=== PATIENT | male | born 1960 | race Caucasian/White ===

== ENCOUNTER 2024-03-20 10:19 | Emergency (ER) | payer OTHER, SELFPAY ==
--- NOTE | ~2024-03-20 | CT_ITS ---
EXAMINATION: CT brain wo con DATE: 03/20/2024 12:05 INDICATION: TIA TECHNIQUE: Computed tomography (CT) of the head was performed without intravenous contrast. The dose- length product was 605.33 mGy-cm. Automated exposure control and iterative reconstruction technique were employed. COMPARISON: None FINDINGS: There is a chronic right occipital lobe infarction with encephalomalacia. Mild generalized atrophy. There are scattered mild periventricular and subcortical white matter changes, most likely r elated to small vessel ischemic disease (microangiopathy). No ventriculomegaly or midline shift. Ther e is mild intracranial atherosclerosis. IMPRESSION: 1. No acute intracranial abnormality. 2: Chronic right occipital lobe infarction. Reviewed, dictated and finalized at location B.
--- NOTE | ~2024-03-20 | XR_ITS ---
EXAMINATION: XR chest 2V 03/20/2024 10:47 INDICATION: Atrial fibrillation PROCEDURE: 2 view chest COMPARISON: No prior studies for comparison. FINDINGS: The lungs are clear. The cardiomediastinal silhouette is within normal limits. There are no pleural effusions. There is no pneumothorax suspected. IMPRESSION: 1: NO ACUTE CARDIOPULMONARY DISEASE. Reviewed, dictated and finalized at location B.
--- NOTE | 2024-03-20 10:23 | ECG_ITS ---
SEE SCANNED COPY FOR CONFIRMED REPORT MTDD
[2024-03-20 10:29] VITALS: BP 154/92; PULSE 78; RESP 16; TEMP 36.8; O2SAT 100
[2024-03-20 10:33] VITALS: PULSE 68
[2024-03-20 10:41] LABS: Basophils Absolute Auto 0.1 K/mm3 (0.0-0.1); Basophils Percent Auto 0.5 % (0.2-1.2); Eosinophils Absolute Auto 0.2 K/mm3 (0-0.3); Eosinophils Percent Auto 1.8 % (0-4.4); Hemoglobin 16.6 g/dL (14.0-18.0); Immature Granulocyte Absolute 0.03 K/mm3 (0.00-0.031); Immature Granulocyte Percent A 0.3 % (0-0.5); Lymphocytes Absolute Auto 2.16 K/mm3 (0.9-3.2); Lymphocytes Percent Auto 21.6 % (18.3-44.2); Mean Corpuscular HGB Conc 33.2 g/dl (32-36); Mean Corpuscular Hemoglobin 32.2 pg (26-34); Mean Corpuscular Volume 97.1 fl (80-100); Mean Platelet Volume 11.4 fl (7.4-10.4); Monocytes Absolute Auto 0.8 K/mm3 (0.1-0.6); Monocytes Percent Auto 8.2 % (2.6-8.5); Neutrophils Absolute Auto 6.8 K/mm3 (1.3-6.7); Neutrophils Percent Auto 67.6 % (45.5-73.1); Platelet Count Result 252 k/mm3 (150-375); Red Blood Count 5.15 M/mm3 (4.6-6.20)
[2024-03-20 10:53] LABS: Alanine Aminotransferase 16 U/L (6-50); Albumin Level 4.4 g/dL (3.5-5.1); Alkaline Phosphatase 89 U/L (38-126); Anion Gap 6 mmol/L (4-12); Aspartate Amino Transferase 21 U/L (17-59); Bilirubin,Total 1.1 mg/dL (0.2-1.3); Blood Urea Nitrogen 17 mg/dL (9-20); Calcium 9.8 mg/dL (8.4-10.2); Carbon Dioxide 28 mmol/L (22-30); Chloride 108 mmol/L (98-107); Estimated CRCL calculation 52 ml/min; Estimated Glomerular Filt Rate 51; Glucose 80 mg/dL (65-110); Lipase 52 U/L (23-300); Potassium 4.2 mmol/L (3.4-5.0); Sodium 142 mmol/L (137-145)
[2024-03-20 10:54] LABS: INR 0.9; Prothrombin Time 12.9 Seconds (11.1-14.7)
[2024-03-20 10:55] LABS: Partial Thromboplastin Time 31.4 Seconds (22.3-36.8)
[2024-03-20 11:03] LABS: Troponin I < 0.012 ng/mL (0.000-0.034)
--- NOTE | 2024-03-20 11:20 | PC.NURSE ---
assumed care of pt from AUSTIN Walker. pt is resting on stretcher, no distress at this time. pt updated on plan of care: waiting on lab work at this time.
[2024-03-20 11:21] VITALS: BP 132/80; PULSE 86; RESP 18; TEMP 36.6; O2SAT 95
--- NOTE | 2024-03-20 11:39 | ED.ARRPALP ---
HPI - Arrhythmia/Palpitations General Chief Complaint: Arrhythmia/Palpitations Stated Complaint: new onset a-fib Time Seen by Provider: 03/20/24 10:29 History of Present Illness HPI narrative: Patient is a 63-year-old male who presents ER with reports of being in atrial fibrillation. Diagnosed yesterday while going to a sleep study. He went to an ER in [facility] but was not seen due to chaos in the ER and not wanting to stay. He has no chest pain or shortness of breath. He is currently also being evaluated for multiple episodes where his left arm went numb. He has no numbness or weakness at this time. No formal diagnosis of CVA or TIA in the past. He is a smoker. No known heart disease or heart failure. Denies history of hypertension. Related Data Allergies Allergy/AdvReac Type Severity Reaction Status Date / Time HYDROCODONE BIT Allergy Loss of Uncoded 03/20/24 10:21 Consciousness Review of Systems Review of Systems: All systems reviewed & are unremarkable except as noted in HPI and below Constitutional: Constitutional: Reports no additional constitutional complaints ENT: Reports system reviewed and no additional complaints, except as documented Cardiovascular: Cardiovascular: Reports no additional cardiovascular complaints Respiratory: Respiratory: Reports no additional respiratory complaints Gastrointestinal: Gastrointestinal: Reports no additional gastrointestinal complaints Genitourinary: Genitourinary: Reports no additional male genitourinary complaints [facility] Past Medical History Medical History (Updated 03/20/24 @ 13:31 by Catarino Moreno MD) Atrial fibrillation CVA (cerebral vascular accident) Family History Family History (Updated 06/12/17 @ 08:23 by DOCTOR UNKNOWN) Father Family history of malignant neoplasm Grandparent Family history of malignant neoplasm Family history unknown Social History Social History Smoking status: Heavy tobacco smoker Alcohol intake: current Exam Narrative: GENERAL: Well-appearing, well-nourished, and in no acute distress. HEAD: Normocephalic, atraumatic. ENT: Mucous membranes moist. NECK: Supple. CHEST: Clear to auscultation. No respiratory distress. HEART: irregularly irregular rate and rhythm. Normal peripheral pulses. ABDOMEN: Soft, nontender, nondistended. EXTREMITIES: Normal range of motion. No edema. SKIN: Warm, dry, no rash. NEURO: Alert and oriented x3. PSYCH: Normal mood and affect. Course Course Emergency Course: Heart care group consulted. No rate control required. We will perform a CT of the brain and if there is evidence of old infarct patient will be started on Xarelto. The CT does in fact show infarct. I have contacted patient's PCP who will follow him up. Patient be started on Xarelto daily. I have educated on the pertinent findings of his imaging studies and his lab work. Vital Signs Vital signs: Vital Signs Temperature 98.2 F 03/20/24 10:29 Pulse Rate 78 03/20/24 10:29 Respiratory Rate 16 03/20/24 10:29 Blood Pressure 154/92 H 03/20/24 10:29 Pulse Oximetry 100 03/20/24 10:29 Temperature 97.8 F 03/20/24 11:21 Pulse Rate 86 03/20/24 11:21 Respiratory Rate 18 03/20/24 11:21 Blood Pressure 132/80 03/20/24 11:21 Pulse Oximetry 95 03/20/24 11:21 MDM - Arrhythmia/Palpitations Lab Data 03/20/24 10:34 03/20/24 10:34 Labs: Lab Results 03/20/24 Range/Units 10:34 WBC 10.0 (4.5-10.0) K/mm3 RBC 5.15 (4.6-6.20) M/mm3 Hgb 16.6 (14.0-18.0) g/dL Hct 50.0 (42.0-52.0) % MCV 97.1 (80-100) fl MCH 32.2 (26-34) pg MCHC 33.2 (32-36) g/dl RDW 13.0 (11.5-14.5) % Plt Count 252 (150-375) k/mm3 MPV 11.4 H (7.4-10.4) fl Immature Gran % (Auto) 0.3 (0-0.5) % Neut % (Auto) 67.6 (45.5-73.1) % Lymph % (Auto) 21.6 (18.3-44.2) % [place] % (Auto) 8.2 (2.6-8.5) % Eos % (Auto) 1.
[2024-03-20 13:44] VITALS: BP 145/95; PULSE 86; RESP 16; TEMP 36.5; O2SAT 98
== END 2024-03-20 13:47 | disposition home or self-care (01) ==
PROVIDERS: Emergency Provider Emergency Medicine; PCP Family Medicine
DX: I48.91 Unspecified atrial fibrillation (principal); F17.200 Nicotine dependence, unspecified, uncomplicated; Z86.73 Personal history of transient ischemic attack (TIA), and cerebral infarction without residual deficits
CPT/HCPCS: 36415; 70450; 71046; 80053; 83690; 84443; 84484; 85025; 85610; 85730; 93005; 99284

== ENCOUNTER 2024-05-26 08:19 | Outpatient (CLI) | payer OTHER, SELFPAY ==
--- NOTE | 2024-05-26 08:42 | ECHO_ITS ---
Patient Info Name: Nazario Calvin Age: 63 years : 1960 Gender: Male Ht: 71 in Wt: 165 lbs BSA: 1.94 m2 HR: 68 bpm BP: 137 / 98 mmHg Heart Rhythm: Atrial Fibrillation Technical Quality: Good Exam Date: 05/26/2024 8:53 AM Exam Location: Echo Lab Patient Status: Outpatient Admit Date: 05/26/2024 Staff Ordering Physician: Naye Watson NP Statistical Consultant: Julia Chris RDCS Attending Provider: Naye Watson NP Exam Type: CA echo doppler color flow Study Info Indications I48.91 - UNSPECIFIED ATRIAL FIBRILLATION Complete two-dimensional, color flow and Doppler transthoracic echocardiogram is performed. Summary 1. Complete two-dimensional, color flow and Doppler transthoracic echocardiogram is performed. 2. Left ventricular chamber dimension is normal. 3. Left ventricular systolic function is normal, estimated at 60-65%. 4. The left ventricular diastolic function is normal. 5. E/e' 6 is not elevated. 6. Atrial fibrillation. 7. Left atrial chamber dimension is mildly enlarged. 8. Right atrial chamber dimension is mildly enlarged. 9. There is mild aortic valve sclerosis. 10. There is mild to moderate aortic valve regurgitation. 11. There is trace mitral valve regurgitation. 12. There is trace tricuspid valve regurgitation. 13. No pulmonary hypertension, estimated pulmonary arterial systolic pressure is 27 mmHg. 14. There is trace pulmonic regurgitation. Left Ventricle Atrial fibrillation. E/e' 6 is not elevated. Left ventricular chamber dimension is normal. Left ventricular systolic function is normal, estimated at 60-65%. The left ventricular diastolic function is normal. Right Ventricle Right ventricular systolic function is normal and with normal TAPSE 2.0 cm. Right ventricular chamber dimension is normal. Left Atria Left atrial chamber dimension is mildly enlarged. Right Atria Right atrial chamber dimension is mildly enlarged. Aortic Valve The aortic valve is trileaflet. There is mild aortic valve sclerosis. There is no aortic valve stenosis. There is mild to moderate aortic valve regurgitation. Pulmonic Valve There is trace pulmonic regurgitation. Mitral Valve There is no mitral valve stenosis. There is trace mitral valve regurgitation. Tricuspid Valve There is trace tricuspid valve regurgitation. No pulmonary hypertension, estimated pulmonary arterial systolic pressure is 27 mmHg. Pericardium/Pleural There is no pericardial effusion. Inferior Vena Cava Normal inferior vena cava with >50% collapse upon inspiration consistent with normal right atrial pressure, 5 mmHg. Aorta The aortic root size at the sinus of Valsalva is normal. Left Ventricular Outflow Tract Name Value Normal LVOT 2D LVOT Diameter 2.0 cm LVOT Doppler LVOT Peak Gradient 3 mmHg LVOT Mean Gradient 1 mmHg LVOT VTI 16 cm LVOT VTI/AV VTI Ratio 0.8 LVOT Stroke Volume 49 ml LVOT CO 3.6 l/min LVOT CI 1.9 l/min/m2 Pulmonic Valve
== END 2024-05-26 08:20 | disposition home or self-care (01) ==
LOC: ANHCARD 08:21
PROVIDERS: PCP Nurse Practitioner Family; Visit Provider Nurse Practitioner Family
DX: I48.91 Unspecified atrial fibrillation (principal); I35.8 Other nonrheumatic aortic valve disorders; I35.1 Nonrheumatic aortic (valve) insufficiency
CPT/HCPCS: 93306

== ENCOUNTER 2025-06-02 00:13 | Day surgery (SDC) | payer OTHER, SELFPAY ==
[2025-05-18 15:59] VITALS: BMI 23.1
--- NOTE | 2025-05-18 16:08 | PC.NURSE ---
Spoke with pt regarding holding Xarelto, last dose 05/30/25. Pt stated understanding.
--- OUTSIDE RECORDS SUMMARY | 2025-06-02 00:15 | XMS_ITS | Encounter Summary ---
Author Organization [facility] Address [address] [place] [address] Care Team Providers Care Engine Room Operator Name Role Phone Unavailable Primary Care Provider Unavailabl e Encounter Details Date Type Department Care Team (Late st Contact Info) Description 04/04/2023 Lab Requisition [facility] - DermPath Lab [address] [place] [address] Antonia Silva DO [address] [facility] [address] [place] [address] Social History Tobacco Use Types Packs/Day Years Used Date Smoking Tobacco: Never Assessed Sex and Gender Information Value Date Recorded Sex Assigned at Not on file Legal Sex Male 2:41 PM CDT Gender Identity Not on file Sexual Orientation Not on file documented as of this encounter Plan of Treatment Not on file documented as of this encounter Procedures Procedure Name Priority Date/Time Associated Diagnosis Comments DERMATOPATHOLOGY Routine 04/04/2023 11:0 2 AM CDT documented in this encounter Results * DERMATOPATHOLOGY (04/04/2023 11:02 AM CDT) Case Report Dermatopathology Report Case: [id number] Authorizing Provider: Antonia Silva DO Collected: 04/04/2023 11:02 AM Ordering Location: [facility] Lab Received: 04/05/2023 09:04 AM Pathologist: Charu Bowen MD Specimen: Skin, left upper back 3 4:48 PM CDT DERMATOPATHOLOGY LABORATORY Final Diagnosis Specimen A. 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 The specimen consists of a shave biopsy measuring [id number]. Jar 0. 3 4:48 PM CDT DERMATOPATHOLOGY LABORATORY Microscopic Description Specimen A. SKIN, left upper back: The epidermis is mildly acanthotic. There is a lichenoid infiltrate with vacuolar changes of basilar keratinocytes and scattered necrotic keratinocytes. Sections show abundant melanin within melanophages around the superficial vascular plexus. 3 4:48 PM T DERMATOPATHOLOGY LABORATORY Disclaimer An external and internal positive and negative controls are appropriate for the histochemical, immunohistochemical and immunofluorescence stain(s) in this case (if any), except where stated explicitly. The performance characteristics of the stain(s) cited in this report were developed and its performance characteristic determined by the Dermatopathology Laboratory at [facility], directed by Dr. Richard Bowen. These tests need not be, and therefore are not, approved by the [place] Food and Drug Administration. The tests are used for clinical purposes. Billing Codes Specimen Charges Stain Charges 83737 1 3 4:48 PM CDT DERMATOPATHOLOGY LABORATORY Embedded Images 3 4:48 PM CDT DERMATOPATHOLOGY LABORATORY Pathology/Cytolo gy TISSUE SPECIMEN FROM SKIN / Unknown 04/04/2023 11:02 AM CDT 04/05/2023 9:04 AM CDT us Antonia Silva DO LAB - PATHOLOGY/CYTOLOGY ORDERABLES Final Result DERMATOPATHOLOGY LABORATORY [facility] - Department of Dermatology [address] [place] [address], [facility] [phone] documented in this encounter Visit Diagnoses Not on filedocumented in this encounter
--- OUTSIDE RECORDS SUMMARY | 2025-06-02 00:15 | XMS_ITS | Clinical Summary ---
Author Organization [facility] Address [address] [place] [address] Care Team Providers Care Flat Hammerer Name Role Phone Unavailable Primary Care Provider Unavailabl e Source Comments [facility],non-owned Affiliates and Associated Physician Practices is amultiple site organization consisting of ambulatory clinics and hospital sitesin [place], [place], [place] and [place]. This disclosure is being madepursuant to the Care Everywhere program and may not contain all information available regarding this patient. Last updated 18.[facility] [employer] Social History Tobacco Use Types Packs/Day Years Used Date Smoking Tobacco: Never Assessed Sex and Gender Information Value Date Recorded Sex Assigned at Not on file Legal Sex Male 2:41 PM CDT Gender Identity Not on file Sexual Orientation Not on file Plan of Treatment Health Maintenance Due Date Last Done Comments COLOGUARD (AGES 45-75) - COL ON CA SCREENING 1960 COLON MONITORING 1960 COLONOSCOPY - COLON CA SCREENING 1960 CT COLONOGRAPHY - COLON CA SCREENING 1960 Colorectal Cancer Screening 1960 FIT - COLON CA SCREENING 1960 FLEX SIG - COLON CA SCREENING 1960 LIPID TESTING 1960 HIV SCREENING 1975 HEPATITIS C SCREENING 10/30/1978 DTAP/TDAP/TD VACCINES (1 - Tdap) 1979 PNEUMOCOCCAL VACCINE 50+ (1 of 1 - PCV) 2010 ZOSTER VACCINE (1 of 2) 2010 COVID-19 VACCINE ( - 2023-2 5 season) 2024 DEPRESSION SCREENING 11/19/2024 INFLUENZA VACCINE (#1) 2025 Respiratory Syncytial Virus (RSV) Vaccine Pt: or over 60 yrs (1 - 1-dose 75+ series) 2035 HEPATITIS B VACCINE Aged Out No longe r eligible based on patient's age to complete this topic HIB VACCINE Aged Out No longer eligi ble based on patient's age to complete this topic HPV VACCINE Aged Out No longer eligi ble based on patient's age to complete this topic MENINGOCOCCAL (Group B) VACC INE SHARED DECISION-MAKING Aged Out No longer eligibl e based on patient's age to complete this topic MENINGOCOCCAL GROUPS A/C/Y/W VACCINE Aged Out No longer eligible b ased on patient's age to complete this topic [facility]
--- OUTSIDE RECORDS SUMMARY | 2025-06-02 00:16 | XMS_ITS | Data Portability ---
Author Organization [facility], Main Office Address [address] [place] [address] Assessment No assessment recorded. Plan of Treatment Reminders Order Date Submit Date Provider Last Modified By Organization Details Last Modified Time Details Appointments None recorded. Lab lipid panel, serum 2023 024 4 [facility] (Lab), [address] [place], [address], 4 09:33:00 BMP, serum or plasma 2022 023 RALEIGH Not available 3 21:00:33 BMP, serum or plasma 2022 023 [email or web address] Not available 3 17:20:01 Referral neurologist referral - Please call patient to schedule an appointment 2023 024 [email or web address] Asif Ramsey MD, [address] [facility] , [address], [address], 4 09:08:15 Procedures None recorded. Surgeries None recorded. Imaging None recorded. Medication Orders aspirin 81 mg tablet,davis yed release 2023 024 [email or web address] [facility] #[id number], [address] [place] [address], [id number], 4 09:36:16 famotidine 40 mg tablet 2022 023 [email or web address] [facility] #[id number], [address] [place] [address], [id number], 3 13:24:05 Otezla Starter 10 mg (4)-20 mg (4)-30 mg(19) tablets in a dose pack 2022 023 RALEIGH Barber, [address] [place], [address], 3 12:05:24 prednisone 20 mg tablet 2022 023 [email or web address], [address] [place] [address], [id number], 3 15:26:54 clobetasol 0.05 % topical cream 2022 023 [email or web address], [address] [place] [address], [id number], 3 15:26:55 Patient TargetsNo targets recorded. Patient InstructionsNo instructions recorded. Reason for Referral Neurologist Referral for His tory of cerebrovascular accident without residual deficits Please call patient to schedule an appointment Referring Physician: Ashish Robert, Family Medicine, Encounter Date: 01/15/2024 Results Created Date Observation Date Name Description Value Unit Range Abnormal Flag Note LastModifiedBy Organization Detail LastModifiedTime 03/14/2003/14/2023 BASIC METAB OLIC PANEL sodium 141 mmol/ L 137-14 5 Not Available [facility] (Lab) [address] [place], [address], 03/14/2023 21:20:24 03/14/20 23 03/14/2023 BASIC METAB OLIC PANEL potassium 4.5 mmol/ L 3.5-5. 1 Not Available [facility] (Lab) [address] [place], [address], 03/14/2023 21:20:24 03/14/20 23 03/14/2023 BASIC METAB OLIC PANEL chloride 105 mmol/ L 98-107 Not Available [facility] (Lab) [address] [place], [address], 03/14/2023 21:20:24 03/14/20 23 03/14/2023 BASIC METAB OLIC PANEL carbon dioxide 27 mmol/ L 22-30 Not Available [facility] (Lab) [address] [place], [address], 03/14/2023 21:20:24 03/14/20 23 03/14/2023 BASIC METAB OLIC PANEL anion gap 13.5 mmol/ L 14-22 low Not Available [facility] (Lab) [address] [place], [address], 03/14/2023 21:20:24 03/14/20 23 03/14/2023 BASIC METAB OLIC PANEL glucose 143 mg/dL 70-99 high Not Available [facility] (Lab) [address] [place], [address], 03/14/2023 21:20:24 03/14/20 23 03/14/2023 BASIC METAB OLIC PANEL BUN 11 mg/dL 8-19 Not Available [facility] (Lab) [address] [place], [address], 03/14/2023 21:20:24 03/14/20 23 03/14/2023 BASIC METAB OLIC PANEL creatinine 1.20 mg/dL 0.66-1 .25 Not Available [facility] (Lab) [address] [place], [address], 03/14/2023 21:20:24 03/14/20 23 03/14/2023 BASIC METAB OLIC PANEL GFR >60 Refer ence Range : [place] GFR Healt hy Adult : >60 mL/mi n/1.7 3 m2 Chron ic Kidne y Disea se: 15-60 mL/mi n/1.7 3 m2 Kidne y Failu re: <15/m L/min /1.73 m2 www.n iddk. nih.g ov The MDRD study equat ion has not been valid ated in child elvie <18 years of age; pregn ant women ; the elder ly >85 years of age; or in some racia l or ethni c subgr oups, such as Hispa nics. Outsi de the valid ated guy eters , estim ated GFR is less accur ate, requi ring clini krystyan judgm ent on a case- by-ca se basis . Clini krystyna inter preta tion for other races and ages must be made by the clini marleny. The MDRD study equat ion has not been valid ated for the evalu ation of serum creat inine relat ed to nutri josie l statu s or medic ation usage . For perso ns <18 years of age, a pedia tric GFR calcu lator is avail able on the [facility] websi te: https ://ijeoma stevens.shannon latif.o rg/pr ofess ional s/kdo qi/gf r_cal culat or Not Available [facility] (Lab) [address] [place], [address], 03/14/2023 21:20:24 03/14/20 23 03/14/2023 BASIC METAB OLIC PANEL calcium 9.7 mg/dL 8.4-10 .2 Not Available [facility] (Lab) [address] [place], [address], 03/14/2023 21:20:24 06/20/20 23 06/20/2023 BASIC METAB OLIC PANEL sodium 138 mmol/ L 137-14 5 Not Available [facility] (Lab) [address] [place], [address], 06/20/2023 21:00:33 06/20/20 23 06/20/2023 BASIC METAB OLIC PANEL potassium 4.7 mmol/ L 3.5-5. 1 Not Available [facility] (Lab) [address] [place], [address], 06/20/2023 21:00:33 06/20/20 23 06/20/2023 BASIC METAB OLIC PANEL chloride 105 mmol/ L 98-107 Not Available [facility] (Lab) [address] [place], [address], 06/20/2023 21:00:33 06/20/20 23 06/20/2023 BASIC METAB OLIC PANEL carbon dioxide 28 mmol/ L 22-30 Not Available [facility] (Lab) [address] [place], [address], 06/20/2023 21:00:33 06/20/20 23 06/20/2023 BASIC METAB OLIC PANEL anion gap 9.7 mmol/ L 14-22 low Not Available [facility] (Lab) [address] [place], [address], 06/20/2023 21:00:33 06/20/20 23 06/20/2023 BASIC METAB OLIC PANEL glucose 101 mg/dL 70-99 high Not Available [facility] (Lab) [address] [place], [address], 06/20/2023 21:00:33 06/20/20 23 06/20/2023 BASIC METAB OLIC PANEL BUN 15 mg/dL 8-19 Not Available [facility] (Lab) [address] [place], [address], 06/20/2023 21:00:33 06/20/20 23 06/20/2023 BASIC METAB OLIC PANEL creatinine 1.11 mg/dL 0.66-1 .25 Not Available [facility] (Lab) [address] [place], [address], 06/20/2023 21:00:33 06/20/2006/20/2023 BASIC METAB OLIC PANEL GFR >60 Refer ence Range : [place] GFR Healt hy Adult : >60 mL/mi n/1.7 3 m2 Chron ic Kidne y Disea se: 15-60 mL/mi n/1.7 3 m2 Kidne y Failu re: <15/m L/min /1.73 m2 www.n iddk. nih.g ov The MDRD study equat ion has not been valid ated in child elvie <18 years of age; pregn ant women ; the elder ly >85 years of age; or in some racia l or ethni c subgr oups, such as Hispa nics. Outsi de the valid ated guy eters , estim ated GFR is less accur ate, requi ring clini krystyna judgm ent on a case- by-ca se basis . Clini krystyna inter preta tion for other races and ages must be made by the clini marleny. The MDRD study equat ion has not been valid ated for the evalu ation of serum creat inine relat ed to nutri josie l statu s or medic ation usage . For perso ns <18 years of age, a pedia tric GFR calcu lator is avail able on the [facility] websi te: https ://ijeoma w.shannon latif.o rg/pr ofess ional s/kdo qi/gf r_cal culat or Not Available [facility] (Lab) [address] [place], [address], 06/20/2023 21:00:33 06/20/20 23 06/20/2023 BASIC METAB OLIC PANEL calcium 9.4 mg/dL 8.4-10 .2 Not Available [facility] (Lab) [address] [place], [address], 06/20/2023 21:00:33 03/20/20 24 03/20/2024 XR, chest No observ ation record ed. [email or web address] [facility] [address], [place], [address], 04/05/2024 20:21:13 03/20/20 24 03/20/2024 CT, brain , w/o contr ast No observ ation record ed. [email or web address] [facility] [address] [facility] [address], [place], [address], 04/23/2024 09:43:15 Result Notes None recorded. Problems Name Problem SNOMED Code Status Onset Date Resolution Date Notes Provider Name and Address Organization Details Recorded Time Bronchitis 42900516 Active Not Available [facility] 3 14:18:01 Cellulitis of lower limb 339496229 Active Not Available [facility] 3 14:18:01 Psoriasis 1206453 Active 2018 Not Available [facility] 3 14:18:01 Malignant melanoma 402095879 Active 2022 Herminia Ruiz MD [address], [place], [address] , [employer] 3 15:15:50 Chest pain 92504033 Active 2023 MORENO Spangler [address], [place], [address] , [employer] 4 09:04:19 Problem Notes None recorded. Medical Equipment None Reported. Allergies Allergen ID Allergen Name Allergen Category Reaction Reaction Severity Criticality Documentation Date Start Date Code Code System Note Provider Name and Address Organization Details Recorded Time 55832 hydrocodo ne Not available Not available Not available Not available 01/17/2023 5489 RxNorm Not Available [facility] 3 14:21:08 Medications Name Sig Start Date Stop Date Status Note LastModified by Organization Details LastModified Time Prescript ion - New 06/20 completed Not Available Not Available Not Available amoxicill in 500 mg capsule 01/15 completed Not Available Not Available Not Available prednison e 10 mg tablet 01/15 completed Not Available Not Available Not Available doxycycli ne hyclate 100 mg capsule 01/15 completed Not Available Not Available Not Available azithromy chuck 250 mg tablet TAKE 2 TABLETS (500 MG) BY ORAL ROUTE ONCE DAILY FOR 1 DAY THEN 1 TABLET (250 MG) BY ORAL ROUTE ONCE DAILY FOR 4 DAYS 02/06 completed Not Available Not Available Not Available famotidin e 40 mg tablet TAKE 1 TABLET BY MOUTH DAILY active Not Available Not Available No t Available prednison e 20 mg tablet TAKE 2 TABLETS BY MOUTH EVERY DAY WITH FOOD FOR 5 DAYS active Not Available Not Available No t Available clobetaso l 0.05 % topical cream APPLY A THIN LAYER TO THE AFFECTED AREAS TOPICALL Y TWICE DAILY NEEDED active Not Available Not Available No t Available clindamyc in HCl 150 mg capsule Take 1 capsule every 8 hours by oral route. 10/25 completed Not Available Not Available Not Available triamcino lone acetonide 0.5 % topical ointment 02/06 completed Not Available Not Available Not Available acetamino phen 300 mg-codein e 30 mg tablet 11/04 completed Not Available Not Available Not Available ciproflox acin 250 mg tablet Take 1 tablet every 12 hours by oral route for 14 days. 02/06 completed Not Available Not Available Not Available sulfameth oxazole 800 mg-trimet hoprim 160 mg tablet TK 1 T PO BID FOR 14 DAYS 02/06 completed Not Available Not Available Not Available aspirin 81 mg tablet,de layed release Take 1 tablet every day by oral route for 90 days. 2023 active Not Available Not Available Not Avai lable tramadol 50 mg tablet 01/15 completed Not Available Not Available Not Available losartan 100 mg-hydroc hlorothia zide 25 mg tablet TK 1 T PO QD 02/06 completed concerne d about recall Not Available Not Available Not Available amoxicill in 875 mg tablet Take 1 tablet every 12 hours by oral route for 7 days. 02/06 completed Not Available Not Available Not Available triamcino lone acetonide 0.1 % topical ointment 02/06 completed Not Available Not Available Not Available polymyxin B sulfate 10,000 unit-trim ethoprim 1 mg/mL eye drops 01/15 completed Not Available Not Available Not Available lisinopri l 20 mg-hydroc hlorothia zide 25 mg tablet TK 1 T PO QD 02/06 completed Not Available Not Available Not Available ibuprofen 600 mg tablet 10/25 completed Not Available Not Available Not Available cefuroxim e axetil 500 mg tablet Take 1 tablet twice a day by oral route for 10 days. 01/15 completed Not Available Not Available Not Available methylpre dnisolone 4 mg tablets in a dose pack FPD 02/06 completed Not Available Not Available Not Available ondansetr on 4 mg disintegr ating tablet DIS ONE T PO Q 8 H PRF NAUSEA 02/06 completed Not Available Not Available Not Available fluticaso ne propionat e 50 mcg/actua tion nasal spray,[employer] pension [place] 1 spray every day by intranas al route for 30 days. 02/06 completed Not Available Not Available Not Available Otezla Starter 10 mg (4)-20 mg (4)-30 mg(19) tablets in a dose pack take as directed 2022 active Not Available Not Available Not Avai lable Otezla 30 mg tablet 1 po bid active Not Available Not Available N ot Available Otezla Starter 10 mg (4)-20 mg (4)-30 mg(47) tablets in a dose pack active Not Available Not Available Not Available Flucelvax Quad 60 mcg (15 mcg x 4)/0.5 mL IM suspensio n ADM 0.5ML IM UTD 02/06 completed Not Available Not Available Not Available Fluarix Quad (PF) 60 mcg (15 mcg x 4)/0.5 mL IM syringe ADM 0.5ML IM UTD 02/06 completed Not Available Not Available Not Available Vitals Date Recorded Body height Body mass index (BMI) Body weight Body temperature Heart rate Oxygen saturation Oxygen saturation in Arterial blood by Pulse oximetry Systolic And Diastolic Provider Name and Address Organization Details Last Updated DateTime 4 180.34 cm 22.3 kg/m2 29784.7 8 g 98.3 [degF] 94 /min 99 % 99 % 128/80 mm[Hg] Marquita Cary RN [facility] [employer] 4 08:56:06 Date Recorded Body height Body mass index (BMI) Body weight Body temperature Heart rate Oxygen saturation Oxygen saturation in Arterial blood by Pulse oximetry Systolic And Diastolic Provider Name and Address Organization Details Last Updated DateTime 3 180.34 cm 22.5 kg/m2 98995.3 7 g 97.3 [degF] 60 /min 98 % 98 % 126/80 mm[Hg] Charlotte Olivo MA [facility] [employer] 3 14:39:23 Date Recorded Body height Body mass index (BMI) Body weight Body temperature Heart rate Oxygen saturation Oxygen saturation in Arterial blood by Pulse oximetry Systolic And Diastolic Provider Name and Address Organization Details Last Updated DateTime 3 180.34 cm 22 kg/m2 63507.5 9 g 98.2 [degF] 74 /min 97 % 97 % 120/80 mm[Hg] Lisa Escalera MA [place] [employer] [facility] [employer] 3 15:40:16 Date Recorded Body height Body mass index (BMI) Body weight Body temperature Heart rate Oxygen saturation Oxygen saturation in Arterial blood by Pulse oximetry Systolic And Diastolic Provider Name and Address Organization Details Last Updated DateTime 3 180.34 cm 22.3 kg/m2 59682.7 8 g 97.1 [degF] 53 /min 94 % 94 % 140/86 mm[Hg] Asuncion Motta RN [facility] 3 08:55:36 Social History Question Answer Notes LastModified by [employer] Details LastModified Time Tobacco Smoking Status Current Every Day Smoker Charlotte Olivo MA [facility], [place] [employer] [facility] 02/06/2023 14:42:19 What Is Your Level Of Caffeine Consumption? Moderate [email or web address] Information not available 02/06/2023 What Type Of Diet Are You Following? REGULAR [email or web address] Information not available 02/06/2023 What Is Your Current Pack Years? 10-19packyears [email or web address] Information not available 02/06/2023 How Much Tobacco Do You Smoke? 1 PPD [email or web address] Information not available 02/06/2023 Do You Have Any Dietary Restrictions? No [email or web address] Information not available 02/06/2023 Sex: Unknown Functional Status Question Answer Note LastModified by [employer] Details LastModified Time Do you use any illicit or recreational drugs? No [email or web address] Information not available 02/06/2023 What is your level of alcohol consumption? 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 Heavy [email or web address] Information not available 02/06/2023 Mental Status None recorded. Family History Relationship Description Onset Age of this Age Resolved Age Notes LastModified by Organization Details LastModified Time Mother Diabetes mellitus Not available 01/18 14:41:04 Medical History No medical history recorded. Immunizations Vaccine Type Date Status Note Provider Nam e and Address Organization Details Recorded Time Influenza, split virus, quadrivalent, preservative 9 completed Not Available [facility] 01/17/2023 14:20:56 Past Encounters Encounter ID Performer Location Encounter Start Date Encounter Closed Date Diagnosis/Indication Diagnosis SNOMED-CT Code Diagnosis ICD10 Code Diagnosis Note [id number] Herminia Ruiz MD [facility] Primary [facility] [address] [place] [address] 02/06/2023 14:10:42 02/06/2023 15:35:25 Psoriasis 9426917 L40.9 has failed humira, topical creamstria l of otezla starter packpredni sone taper and topical steroid in meantimef/ u in 4 weeks Malignant melanoma 29889 4006 C43.9 ?melanoma, pt was not clear on diagnosis but does not have set f/u yethe was instructed to contact his dermatolog y to verify when he should f/uhe agreed to do sof/u in 4 weeks or sooner if needed [id number] Herminia Ruiz MD [facility] Primary Care [address] [place] [address] 03/14/2023 15:30:38 03/14/2023 17:09:39 Psoriasis 2045636 L40.9 Z79.899 has failed humira, topical creamsdoin g well on otezlachec k bmpf/u in 3 months or sooner if needed [id number] Herminia Ruiz MD [facility] Primary Care [address] [place] [address] 06/20/2023 08:49:03 06/20/2023 09:25:34 Psoriasis 1278673 L40.9 Z79.899 has failed humira, topical creamsdoin g well on otezla but having some med s/echeck bmpf/u in 3 months or sooner if needed, consider derm referral if still having s/e [id number] Herminia Ruiz MD [facility] Primary Care [address] [place] [address] 01/15/2024 08:47:54 01/15/2024 10:08:29 History of cerebrovascular accident without residual deficits 995769206 Z86.73 -Pt noted recent left sided chest pain x2 (while at work performing regular work duties swinging 8oz hammer, and while walking around his home performing no specific job)-left upper arm went numb during both occasions (resolved after approx 30 seconds)-s lurred speech noted on the second occurrence (resolved after 30 sec)-All symptoms have resolved and have not happened again for weeks-poss ible TIA-referr al to neuro given-star ting aspirin 81mg-obtai winter lipid panel Health Concerns Section Related Observation LastModified by Organization Detai ls LastModified Time None Recorded Concern Status LastModified by Organization Details LastModified Time None Recorded Advance Directives Directive None Recorded Payers Insurance Date Sequence Insurance Name Policy Number Policy Weaver Covered Member ID Weaver Member ID Guarantor Name 01/15/2024 1 [facility] [id number] Nazario Calvin [id number] Nazario Calvin Notes Date Note Type Note Provider Name and Address Organization Details Recorded Time 02/06/2023 text/html here to dulce melvin [facility]-he has been diagnosed with psoriasis but nothing has been effective. He has been treated with humira, steroids, topical creams. No chest pain, no sob. He notes that he had a skin lesion removed in the last year and believes he was told it was melanoma but has no set f/u with dermatology. Herminia Ruiz MD [address] [place] [address], [place], [address], [employer] 02/15/2023 07:51:41 03/14/2023 text/html here to f/u on psoriasis. He had significant improvement with oral prednisone and is now tolerating otezla well. Herminia Ruiz MD [address], [place], [address], [employer] 03/14/2023 20:52:13 06/20/2023 text/html here to f/u on psoriasis. He had significant improvement with oral prednisone and is now tolerating otezla well. update 06/20/23: He is having headache, upset stomach with otezla, but it is getting somewhat better. Overall significant improvement in his psoriasis, still some spots on his hands that he is using clobetasol on. Herminia Ruiz MD [address] [place] [address], [place], [address], [employer] [facility] [employer] [facility] 06/20/2023 10:15:26 01/15/2024 text/html Pt is here to discuss possible TIA symptoms JUSTINE Spangler-Frandy [address], [facility] [address], [place], [address], [employer] [facility] 01/15/2024 09:39:52
--- OUTSIDE RECORDS SUMMARY | 2025-06-02 00:16 | XMS_ITS | Referral Summary ---
Author Organization [facility] Address [address] [place] [address] Care Team Providers Care Production Support Developer Name Role Phone Ashish Robert NP Unavailable [phone] Naye Watson NP Primary Care Provider [phone] Allergies Active Allergy Reactions Criticality Noted Date Comments Hydrocodone Delusions Medium 06/23/2024 Medications Xarelto 20 mg tablet Take 1 tablet (20 mg total) by mouth daily 04/16/2024 Active famotidine (PEPCID) 20 mg tablet Take 1 tablet (20 mg total) by mouth 2 (two) times a day Active Active Problems Problem Noted Date Diagnosed Date Persistent atrial fibrillation 06/23/2024 Nonrheumatic aortic valve insufficiency 06/23/20 24 Snoring 03/19/2024 Assessment & Plan (03/19/2024 2:23 PM CDT): I have ordered a nocturnal polysomnogram split night protocol if necessary, no MSLT. History of tobacco use 03/19/2024 Assessment & Plan (03/19/2024 2:23 PM CDT): Due to the patient's smoking approximately 1-1-1/2 pack cigarettes for almost 50 years I have ordered a low-dose screening CT scan. Other fatigue 03/19/2024 Irregular heart rate 03/19/2024 Assessment & Plan (03/19/2024 3:20 PM CDT): I have ordered an EKG. Addendum to the note The patient was found to be in atrial fibrillation. The patient was requested to go to the emergency room at [facility]. The patient refused to go to the emergency room at [facility] and is going to go to the emergency room at [facility] in [place]. Social History Tobacco Use Types Packs/Day Years Used Date Smoking Tobacco: Every Day Cigarettes 1 40.2 Started: 03/19/1985 Tobacco Cessation:Ready to Q uit: Not Asked; Counseling Given: Not Answered Alcohol Use Standard Drinks/Week Comments Not Currently 0 (1 standard drink = 0.6 oz pur e alcohol) Personal Safety Answer Date Recorded Have you ever been in or are you currently in a harmful physical or emotional relationship or is someone making you feel afraid or unsafe? Denies 03/19/2024 Sex and Gender Information Value Date Recorded Sex Assigned at Not on file Legal Sex Male 10:21 PM [employer] Gender Identity Male 03/19/2024 3:59 PM CDT Sexual Orientation Not on file Last Filed Vital Signs Vital Sign Reading Time Taken Comments Blood Pressure 129/80 2024 8:10 AM [employer]BINATION PRESSER Pulse 81 2024 8:10 AM COMBINATION PRESSER Temperature 36.6 C (97.9 F) 03/19/2024 3:13 PM CDT Respiratory Rate 18 2024 8:10 AM COMBINATION PR[employer]ER Oxygen Saturation 100% 03/19/2024 7:20 PM CDT Inhaled Oxygen Concentration - - Weight 75.3 kg (166 lb) 2024 8:10 AM COMBINATION PRESSER Height 180.3 cm (5' 11) 2024 8:10 AM COMBINATION PRESSER Body Mass Index 23.15 2024 8:10 AM COMBINATION PRESSER Plan of Treatment Not on file [place] [id number] Care Teams Production Support Developer Relationship Specialty Start Date End Date Naye Watson NP [address] [address] PCP - General Family Medicine 06/23/24 Ashish Robert NP [address] [place] [address] Family Medicine 03/19/24
--- OUTSIDE RECORDS SUMMARY | 2025-06-02 00:16 | XMS_ITS | Clinical Summary ---
Author Organization [facility] Address [address] [place] [address] Care Team Providers Care Compressor Mechanic Name Role Phone Ashish Robert NP Unavailable [phone] Naye Watson NP Primary Care Provider [phone] Allergies Active Allergy Reactions Criticality Noted Date [...] to go to the emergency room at [facility]. The patient refused to go to the emergency room at [facility] and is going to go to the emergency room at [facility] in [place]. Social History Tobacco Use Types Packs/Day Years [...] on file Legal Sex Male 10:21 PM CURRENCY COUNTER Gender Identity Male 03/19/2024 3:59 PM CDT Sexual Orientation Not on file Obstetrics History Last Filed Vital Signs Vital Sign Reading Time Taken Comments Blood Pressure 129/80 2024 8:10 AM CURRENCY COUNTER Pulse 81 2024 8:10 AM CURRENCY COUNTER Temperature 36.6 C (97.9 F) 03/19/2024 3:13 PM CDT Respiratory Rate 18 2024 8:10 AM CURRENCY COUNTER Oxygen Saturation 100% 03/19/2024 7:20 PM CDT Inhaled Oxygen Concentration - - Weight 75.3 kg (166 lb) 2024 8:10 AM CURRENCY COUNTER Height 180.3 cm (5' 11) 2024 8:10 AM CURRENCY COUNTER Body Mass Index 23.15 2024 8:10 AM CURRENCY COUNTER Plan of Treatment Health Maintenance Due Date Last Done Comments Colon Cancer Screening-Colonoscopy 1960 Depression Screening 1960 Hepatitis C Screening 1960 Prostate Cancer Screening-PSA 1960 Hepatitis B Screening 1978 Regular Well Visit/Exam 18-64 1978 Pneumococcal vaccine <65 (1 of 2 - PCV) 1979 Lung Cancer Screening 2010 Zoster Vaccine (1 of 2) 2010 Covid-19 Vaccine (4 - 2023-2 5 season) 2024 12/13/2021, 03/02/2021, 02/09/2021 Influenza Vaccine (#1) 2025 , 08/17/2020, 08/24/2019, Additional history exists DTaP/Tdap/Td Vaccine (2 - Td or Tdap) 03/17/2030 03/17/2020 Insurance Care Teams Compressor Mechanic Relationship Specialty Start Date End Date Naye Watson NP [address] [address] PCP - General Family Medicine 06/23/24 Ashish Robert NP [address] [place] [address] [place] [address] Family Medicine 03/19/24
[2025-06-02 11:56] VITALS: BP 140/91; PULSE 89; RESP 18; TEMP 36.1; O2SAT 100; BMI 21.4
[2025-06-02] MEDS: LACTATED RINGERS 1,000 ML 150 ML IV CONT (12:11)
--- NOTE | 2025-06-02 12:22 | WPDANESEPPF ---
Anes - Initial Pre Proc Eval Procedure: Operation Date: 06/02/25 13:00 Proposed Procedures p Screening Colonoscopy - Maicol Sparks MD Date/Time: 06/02/25 12:22 Surgeon: Maicol Sparks MD Pre Op Diagnosis: Screening Patient Data Age: 64 Gender: M Height: 1.8 m Weight: 69.7 kg Last Vital Signs Temp 36.1 C L 06/02/25 11:56 Pulse 89 06/02/25 11:56 Resp 18 06/02/25 11:56 BP 140/91 H 06/02/25 11:56 Pulse Ox 100 06/02/25 11:56 O2 Del Method Room Air 06/02/25 11:56 Allergies Allergy/AdvReac Type Severity Reaction Status Date / Time hydrocodone Allergy Unknown Feels funny Verified 06/02/25 12:02 Home Medications ?Medication ?Instructions ?Recorded ?Confirmed ?Type flecainide 50 mg tablet 50 mg PO Q12H 10/08/24 05/18/25 History clobetasol 0.05 % topical cream 1 applic topical BID PRN rash #15 02/19/25 05/18/25 Rx grams famotidine 20 mg tablet 20 mg PO BID 03/02/25 06/02/25 History rivaroxaban 20 mg tablet (Xarelto) 20 mg PO DAILY #90 tabs 04/06/25 06/02/25 Rx Patient hx anesthesia problems: none Family hx anesthesia problems: none Results Review: All pre-operative results and documents have been reviewed as part of the pre-operative evaluation. [facility] Past Medical History Medical History Hx of skin malignancy Psoriasis Elevated BP without diagnosis of hypertension Flatulence New onset a-fib Colon cancer screening Screening for lung cancer Tobacco abuse Hyperlipidemia Atrial fibrillation CVA (cerebral vascular accident) Family History Family History Father Family history of malignant neoplasm Grandparent Family history of malignant neoplasm Family history unknown Mother Asthma Diabetes mellitus Hypertension Depression Heart disease Cerebrovascular accident Sibling Diabetes mellitus Social History Social History Smoking packs per day: 0.5 Smoking cigarettes per day: 10.0 Years smoked: 50 Smoking pack-years: 25.00 Smoking status: Current every day smoker Tobacco type: cigarettes Alcohol intake: current Alcohol use details: socially Substance use: never Living arrangements: with family Spiritual care concerns: No Anes - Eval Final PreProcedure Day of Procedure 06/02/25 12:22 Patient weight: normal Heart: regular rate and rhythm Lungs: clear to auscultation Airway: Mallampati scale class 1 Neurological: alert and oriented Last oral intake: >/= 8 hours ASA classification: III Emergent: no Anesthetic plan: proceed Anesthesia type and monitoring: general GIVS and standard monitoring Results Review: All pre-operative results and documents have been reviewed as part of the pre-operative evaluation. Informed Consent: The patient's anesthetic plan and its attendant risks and benefits were discussed with the patient/family/POA. Questions were solicited and answers provided to the satisfaction of the patient/family/POA.
--- NOTE | 2025-06-02 12:27 | PM.HPGS ---
History of Present Illness History of Present Illness Consent: Risks, benefits, and alternatives have been discussed and questions answered. Patient agrees to proceed with procedure. Chief complaint: Screening Narrative: Nazario Calvin is a 64 year old male here for first screening colonoscopy Review of Systems Review of Systems: All systems reviewed & are unremarkable except as noted in HPI and below PMFSH Past Medical History Medical History Hx of skin malignancy Psoriasis Elevated BP without diagnosis of hypertension Flatulence New onset a-fib Colon cancer screening Screening for lung cancer Tobacco abuse Hyperlipidemia Atrial fibrillation CVA (cerebral vascular accident) Family History Family History Father Family history of malignant neoplasm Grandparent Family history of malignant neoplasm Family history unknown Mother Asthma Diabetes mellitus Hypertension Depression Heart disease Cerebrovascular accident Sibling Diabetes mellitus Social History Social History Smoking packs per day: 0.5 Smoking cigarettes per day: 10.0 Years smoked: 50 Smoking pack-years: 25.00 Smoking status: Current every day smoker Tobacco type: cigarettes Alcohol intake: current Alcohol use details: socially Substance use: never Living arrangements: with family Spiritual care concerns: No Meds Home Medications and Allergies Home Medications ?Medication ?Instructions ?Recorded ?Confirmed ?Type flecainide 50 mg tablet 50 mg PO Q12H 10/08/24 05/18/25 History clobetasol 0.05 % topical cream 1 applic topical BID PRN rash #15 02/19/25 05/18/25 Rx grams famotidine 20 mg tablet 20 mg PO BID 03/02/25 06/02/25 History rivaroxaban 20 mg tablet (Xarelto) 20 mg PO DAILY #90 tabs 04/06/25 06/02/25 Rx Allergies Allergy/AdvReac Type Severity Reaction Status Date / Time hydrocodone Allergy Unknown Feels funny Verified 06/02/25 12:02 Vital Signs Vital Signs - 24 hr 06/02/25 11:56 Temperature 97.0 F L Pulse Rate 89 Respiratory Rate 18 Blood Pressure 140/91 H Pulse Oximetry 100 Oxygen Delivery Room Air Exam Const: General: comfortable and no acute distress HENMT: Face/Nose/Sinus: Normal nares present Eyes: General: appearance normal, both eyes and all related structures Neck: Neck: no JVD Resp: Auscultation: clear to auscultation bilaterally Cardio: Rate: regular rate Rhythm: regular rhythm GI: Inspection: non-distended GI Palp: Yes Soft to palpation Skin: General skin exam: normal color Neuro: Speech: normal speech Extrem: General: normal to inspection Psych: Mental Status: mental status grossly normal Assessment and Plan Assessment and plan (1) Colon cancer screening: Code(s): Z12.11 - Encounter for screening for malignant neoplasm of colon Status: Acute Assessment and Plan: colonoscopy
--- NOTE | 2025-06-02 12:40 | S_PTH ---
PATIENT: Nazario Calvin LOC: [facility]#:[id number] AGE/SX: 64/M ROOM: RE06/02/[address]: Maicol Sparks MD : 1960 BED: DIS: 06/02/2025 SPEC #: [id number] RECD: 06/02/25 13:27 STATUS: STELLA RELayla #: [id number] MELISSA: 06/02/25 12:[address]: Maicol Sparks DEPT: [facility] Surgical RECD BY: [address] ENTERED: 06/02/25 13:28 SP TYPE: Surgical OTHR DR: Naye Watson APRN Tissues: A - Colon Polypectomy Procedures: Hematoxylin and Eosin Stain Gross and Microscopic Level 4
[2025-06-02 12:42] VITALS: BP 92/65; PULSE 86; RESP 17; O2SAT 99
[2025-06-02 12:52] VITALS: BP 96/67; PULSE 86; RESP 16; O2SAT 96
[2025-06-02 13:02] VITALS: BP 122/61; PULSE 88; RESP 16; O2SAT 99
== END 2025-06-02 13:18 | disposition home or self-care (01) ==
PROVIDERS: PCP Nurse Practitioner Family; Referring Provider Nurse Practitioner Family; Visit Provider Internal Medicine Gastroenterology
PROC: 0DJD8ZZ Inspection of Lower Intestinal Tract, Via Natural or Artificial Opening Endoscopic (ICD-10-PCS; CPT 45378; principal; 2025-06-02 13:00)
DX: Z12.11 Encounter for screening for malignant neoplasm of colon (principal); D12.4 Benign neoplasm of descending colon; K64.8 Other hemorrhoids; F17.210 Nicotine dependence, cigarettes, uncomplicated
CPT/HCPCS: 45385; 88305; J2003; J2704; J7120

== ENCOUNTER 2025-08-19 10:44 | Outpatient (CLI) | payer OTHER, SELFPAY ==
--- NOTE | ~2025-08-19 | CT_ITS ---
CT ABDOMEN AND PELVIS WITHOUT CONTRAST Clinical History: R10.32 - Left lower quadrant pain Comparison: None Technique: Unenhanced axial images lung bases to symphysis pubis Coronal, sagittal reformats CT images acquired with automatic exposure control for dose reduction DLP: 281 mGy-cm Findings: Without intravenous contrast, sensitivity for detecting visceral parenchymal abnormalities decreased. Lung bases: Clear. Visualized heart and pericardium: Unremarkable. Liver: Unremarkable. Gallbladder: Unremarkable. Spleen: Unremarkable. Pancreas: Unremarkable. Adrenal glands: Unremarkable. Kidneys: Right kidney- No hydronephrosis. No renal stones. Small cortical cyst with punctate mural calcification; Bosniak 2 cyst for which no surveillance indicated. Left kidney- No hydronephrosis. No renal stones. Distal esophagus/stomach: Unremarkable. Small bowel loops: Normal caliber and wall thickness. Colon: Diverticula. Mild diffuse sigmoid wall thickening likely chronic diverticular disease. Normal RLQ appendix. Nodes: No enlarged nodes. Peritoneum: No ascites. No free intraperitoneal air. Urinary bladder: Unremarkable. Prostate: Unremarkable. Bones: No acute bony abnormality. Soft tissues: Unremarkable. Unopacified abdominal aorta: No aneurysmal dilatation. Atherosclerotic disease. IMPRESSION: 1. No acute findings. 2. Diffuse sigmoid wall thickening likely chronic diverticular disease but consider colonoscopy to exclude underlying lesion. Reviewed, dictated and finalized at location R. IMPRESSION: 1. No acute findings. 2. Diffuse sigmoid wall thickening likely chronic diverticular disease but con plow mechanic colonoscopy to exclude underlying lesion.
--- OUTSIDE RECORDS SUMMARY | 2025-08-19 11:30 | XMS_ITS | Encounter Summary ---
Author Organization [facility] Address [address] [place] [address] Care Team Providers Care Pet Stylist Name Role Phone Unavailable Primary Care Provider Unavailabl e Encounter Details Date Type Department Care Team (Late st Contact Info) Description 04/04/2023 Lab Requisition [facility] - DermPath Lab [address] [place] [address] Antonia Silva DO [address] [facility] [address] [place] [address] Social History Tobacco Use Types Packs/Day Years [...] AM CDT) Case Report Dermatopathology Report Case: [id number] Authorizing Provider: Antonia Silva DO Collected: 04/04/2023 11:02 AM Ordering Location: [facility] DermPath Lab Received: 04/05/2023 09:04 AM Pathologist: [...] specimen consists of a shave biopsy measuring [id number]. Jar 0. 3 4:48 PM CDT DERMATOPATHOLOGY [...] characteristic determined by the Dermatopathology Laboratory at [facility], directed by Dr. Richard Bowen. These tests need not be, and therefore are not, approved by the [place] Food and Drug Administration. The tests are used for clinical purposes. Billing Codes Specimen Charges Stain Charges 87609 1 3 4:48 PM CDT DERMATOPATHOLOGY LABORATORY Embedded Images 3 4:48 PM CDT DERMATOPATHOLOGY LABORATORY Pathology/Cytolo gy TISSUE SPECIMEN FROM SKIN / Unknown 04/04/2023 11:02 AM CDT 04/05/2023 9:04 AM CDT us Antonia Silva DO LAB - PATHOLOGY/CYTOLOGY ORDERABLES Final Result DERMATOPATHOLOGY LABORATORY [facility] - Department of Dermatology [address] [place] [address], [facility] [phone] documented in this encounter Visit Diagnoses Not on filedocumented in this encounter
--- OUTSIDE RECORDS SUMMARY | 2025-08-19 11:30 | XMS_ITS | Clinical Summary ---
Author Organization [facility] Address [address] [place] [address] Care Team Providers Care Courtesy Booth Cashier Name Role Phone Unavailable Primary Care Provider Unavailabl e Source Comments [facility],non-owned Affiliates and Associated Physician Practices is amultiple site organization consisting of ambulatory clinics and hospital sitesin [place], [place], [place] and [place]. This disclosure is being madepursuant to the Care Everywhere program and may not contain all information available regarding this patient. Last updated 18.[facility] [employer] Social History Tobacco Use Types Packs/Day Years [...] 2010 ZOSTER VACCINE (1 of 2) 2010 DEPRESSION SCREENING 11/19/2024 COVID-19 VACCINE (1 - 2023-2 5 season) 2025 INFLUENZA VACCINE (#1) 2025 Respiratory Syncytial Virus [...] patient's age to complete this topic Insurance AET AETNA
--- OUTSIDE RECORDS SUMMARY | 2025-08-19 11:30 | XMS_ITS | Clinical Summary ---
Author Organization [facility] Address [address] [place] [address] Care Team Providers Care Job Coach Name Role Phone Ashish Robert NP Unavailable [phone] Naye Watson NP Primary Care Provider [phone] Allergies Active Allergy Reactions Criticality Noted Date [...] to go to the emergency room at [facility]. The patient refused to go to the emergency room at [facility] and is going to go to the emergency room at [facility] in [place]. 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 Gender Identity Male 03/19/2024 3:59 PM CDT Sexual Orientation Not on file Obstetrics History Last Filed Vital Signs Vital Sign Reading Time Taken Comments Blood Pressure 129/80 2024 8:10 AM LAND SURVEY TECHNICIAN Pulse 81 2024 8:10 AM LAND SURVEY TECHNICIAN Temperature 36.6 C (97.9 F) 03/19/2024 3:13 PM CDT Respiratory Rate 18 2024 8:10 AM LAND SURVEY TECHNICIAN Oxygen Saturation 100% 03/19/2024 7:20 PM CDT Inhaled Oxygen Concentration - - Weight 75.3 kg (166 lb) 2024 8:10 AM LAND SURVEY TECHNICIAN Height 180.3 cm (5' 11) 2024 8:10 AM LAND SURVEY TECHNICIAN Body Mass Index 23.15 2024 8:10 AM LAND SURVEY TECHNICIAN Plan of Treatment Health Maintenance Due Date Last Done Comments Colon Cancer Screening-Colonoscopy 1960 Depression Screening 1960 Hepatitis C Screening 1960 Prostate Cancer Screening-PSA 1960 Hepatitis B Screening 1978 Regular Well Visit/Exam 18-64 1978 Pneumococcal vaccine <65 (1 of 2 - PCV) 1979 Lung Cancer Screening 2010 Zoster Vaccine (1 of 2) 2010 Covid-19 Vaccine (4 - 2024-2 6 season) 2025 12/13/2021, 03/02/2021, 02/09/2021 Influenza Vaccine (#1) 2025 , 08/17/2020, 08/24/2019, Additional history exists DTaP/Tdap/Td Vaccine (2 - Td or Tdap) 03/17/2030 03/17/2020 Insurance Care Teams Job Coach Relationship Specialty Start Date End Date Naye Watson NP [address] [address] PCP - General Family Medicine 06/23/24 Ashish Robert NP [address] [place] [address] [place] [address] Family Medicine 03/19/24
== END 2025-08-19 10:45 | disposition home or self-care (01) ==
PROVIDERS: PCP Nurse Practitioner Family; Visit Provider Nurse Practitioner Family
DX: R10.32 Left lower quadrant pain (principal); R10.12 Left upper quadrant pain; R10.9 Unspecified abdominal pain
CPT/HCPCS: 74176